=== PATIENT | male | born 1990 | race Caucasian/White ===

== ENCOUNTER 2017-01-18 23:51 | Emergency (ER) | payer SELFPAY ==
[~2017-01-18] VITALS: Ht 170.2 cm; Wt 72.6 kg
[2017-01-19 00:10] VITALS: BP_SYST 127
--- NOTE | 2017-01-19 01:30 | NUR ---
Patient to ER bed 3 to gown for evaluation. Side rails up. Report given to NORA CASTELLANOS.
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
--- NOTE | 2017-01-19 01:36 | NUR ---
ER Dr. Perry at bedside examining patient.
--- NOTE | 2017-01-19 03:26 | NUR ---
Pt stable, ambulatory. No signs of distress noted.
[2017-01-19 03:52] VITALS: BP_SYST 128
--- NOTE | 2017-01-19 03:52 | NUR ---
Patient given written and verbal discharge instructions and verbalizes understanding. ER MD discussed with patient the results and treatment provided. Patient in stable condition. ID arm band removed. Rx of Motrin given. Patient educated on pain management and to follow up with PMD. Pain Scale 2/10. Pt states pain is tolerable. Opportunity for questions provided and answered.
== END 2017-01-19 03:52 | disposition home or self-care (01) ==
LOC: SED 23:51
DX: S16.1XXA Strain of muscle, fascia and tendon at neck level, initial encounter (principal); S33.5XXA Sprain of ligaments of lumbar spine, initial encounter; S09.90XA Unspecified injury of head, initial encounter; V89.2XXA Person injured in unspecified motor-vehicle accident, traffic, initial encounter; Y93.89 Activity, other specified; Y92.410 Unspecified street and highway as the place of occurrence of the external cause; Y99.8 Other external cause status
CPT/HCPCS: 70450-TC; 72100-TC; 72125-TC; 99284